=== PATIENT | female | born 2000 | race Caucasian/White ===

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

== ENCOUNTER → 2021-02-26 | Outpatient (CLI) | payer OTHER ==
[~2021-02-26] MED LIST: AUGMENTIN 875-1 EACH PO; DOK100 MG PO; HYDROCODON-ACE1 EAC4 PO; IBUPROFEN800 MG PO; MACROBID 100 M100 MG PO; NORCO 10-325 T1 EACH PO; NORCO 5-325 TA1 EACH PO; PRENATAL VITAM1 EAC3 PO
[2021-02-26 14:44] LABS: RED BLOOD COUNT 3.9 M/UL (4.00-5.10); WHITE BLOOD COUNT 8.3 K/UL (4.5-11.0)
== END ==
LOC: GENOP 13:32
PROVIDERS: Obstetrics & Gynecology
DX: Z01.812 Encounter for preprocedural laboratory examination (principal)
CPT/HCPCS: 36415; 81001; 85025; J7120

== ENCOUNTER 2021-02-28 06:40 | Inpatient (IN) | payer OTHER ==
[~2021-02-28] VITALS: Ht 157.5 cm; Wt 59.4 kg
[~2021-02-28 06:40] MED LIST changes: -AUGMENTIN 875-1 EACH PO; -DOK100 MG PO; -HYDROCODON-ACE1 EAC4 PO; -IBUPROFEN800 MG PO; -MACROBID 100 M100 MG PO; -PRENATAL VITAM1 EAC3 PO
[2021-02-28] MEDS ORDERED: PRENATAL VITAM1 EAC3 PO (10:44)
[2021-02-28] MEDS ORDERED: MACROBID 100 M100 MG PO (10:45)
[2021-03-01 07:02] LABS: HEMOGLOBIN 11.1 gm/dl (12.3-15.3)
[2021-03-01] MEDS ORDERED: IBUPROFEN800 MG PO (12:58)
[2021-03-01] MEDS ORDERED: HYDROCODON-ACE1 EAC4 PO (12:58)
[2021-03-01] MEDS ORDERED: DOK100 MG PO (12:58)
== END 2021-03-02 16:14 | disposition home or self-care (01) | DRG 788 ==
LOC: OB 06:40
PROVIDERS: ADMIT Obstetrics & Gynecology
PROC: 10D00Z1 Extraction of Products of Conception, Low, Open Approach (ICD-10-PCS; principal; 2021-02-28 08:47)
DX: O34.211 Maternal care for low transverse scar from previous cesarean delivery (principal); O99.344 Other mental disorders complicating childbirth; F32.9 Major depressive disorder, single episode, unspecified; O99.334 Smoking (tobacco) complicating childbirth; F17.200 Nicotine dependence, unspecified, uncomplicated; F43.10 Post-traumatic stress disorder, unspecified; Z83.3 Family history of diabetes mellitus; Z81.8 Family history of other mental and behavioral disorders; Z82.5 Family history of asthma and other chronic lower respiratory diseases; Z37.0 Single live birth; Z3A.39 39 weeks gestation of pregnancy
CPT/HCPCS: 36415; 81001; 85014; 85018; 85025; 90715; C9113; J0690; J1170; J1200; J1885; J2274; J2405; J2590; J2795; J3010; J7120; U0003

== ENCOUNTER 2021-04-12 12:27 | Emergency (ER) | payer OTHER ==
[~2021-04-12 12:27] MED LIST changes: +DOK100 MG PO; +HYDROCODON-ACE1 EAC4 PO; +IBUPROFEN800 MG PO; +MACROBID 100 M100 MG PO; +PRENATAL VITAM1 EAC3 PO
[2021-04-12] MEDS ORDERED: AUGMENTIN 875-1 EACH PO (13:00)
[2021-04-12] MEDS ORDERED: IBUPROFEN800 MG PO (13:00)
== END 2021-04-12 13:36 | disposition home or self-care (01) ==
LOC: ER1 12:27
DX: K02.9 Dental caries, unspecified (principal)
CPT/HCPCS: 99282

== ENCOUNTER 2021-06-01 19:38 | Emergency (ER) | payer OTHER ==
[~2021-06-01 19:38] MED LIST changes: +AUGMENTIN 875-1 EACH PO
[2021-06-01] MEDS ORDERED: ONDANSETRON ODT4 MG SL (22:36)
[2021-06-01] MEDS ORDERED: NAPROSYN500 MG PO (22:36)
[2021-06-01] MEDS ORDERED: DIMETAPP COLD237 M1 PO (22:36)
== END 2021-06-01 22:40 | disposition home or self-care (01) ==
LOC: ER1 19:38
DX: U07.1 COVID-19 (principal); R68.84 Jaw pain; F17.210 Nicotine dependence, cigarettes, uncomplicated
CPT/HCPCS: 71045; 81001; 84703; 87081; 87086; 87880; 99283; U0003

== ENCOUNTER 2021-10-09 21:06 | Emergency (ER) | payer OTHER ==
[~2021-10-09 21:06] MED LIST changes: +DIMETAPP COLD237 M1 PO; +NAPROSYN500 MG PO; +ONDANSETRON ODT4 MG SL
[2021-10-09 22:42] LABS: HEMOGLOBIN 12.8 gm/dl (12.3-15.3); RED BLOOD COUNT 4.17 M/UL (4.00-5.10); WHITE BLOOD COUNT 14.4 K/UL (4.5-11.0)
[2021-10-09 23:00] LABS: BUN/CREATININE RATIO 18 (0-10)
[2021-10-10] MEDS ORDERED: CEFUROXIME500 MG PO (00:54)
[2021-10-10] MEDS ORDERED: IBUPROFEN800 MG PO (00:54)
== END 2021-10-10 01:07 | disposition home or self-care (01) ==
LOC: ER1 21:06
PROVIDERS: Physician Assistant
DX: R10.9 Unspecified abdominal pain (principal); F17.200 Nicotine dependence, unspecified, uncomplicated; Z20.822 Contact with and (suspected) exposure to COVID-19
CPT/HCPCS: 0240U; 71045; 80053; 81001; 83605; 83690; 84703; 85025; 85652; 86140; 87040; 87077; 87086; 87186; 96374; 96375; 99284; J0696; J1170; Q9967

== ENCOUNTER 2021-12-30 17:27 | Emergency (ER) | payer OTHER ==
[~2021-12-30 17:27] MED LIST changes: +CEFUROXIME500 MG PO
[2021-12-30] MEDS ORDERED: IBUPROFEN800 MG PO (19:11)
== END 2021-12-30 19:25 | disposition home or self-care (01) ==
LOC: ER1 17:27
DX: S86.912A Strain of unspecified muscle(s) and tendon(s) at lower leg level, left leg, initial encounter (principal); X58.XXXA Exposure to other specified factors, initial encounter; Y92.009 Unspecified place in unspecified non-institutional (private) residence as the place of occurrence of the external cause
CPT/HCPCS: 73562; 99283

== ENCOUNTER 2022-03-30 21:25 | Emergency (ER) | payer OTHER | END 2022-03-31 00:30 | disposition home or self-care (01) | LOC: ER1 21:25 | DX: G43.909 Migraine, unspecified, not intractable, without status migrainosus (principal); F17.210 Nicotine dependence, cigarettes, uncomplicated; Z20.822 Contact with and (suspected) exposure to COVID-19 | CPT/HCPCS: 0240U; 99283 ==